=== PATIENT | female | born 1965 | race American Indian/Alaskan Native ===

== ENCOUNTER 2018-04-20 18:29 | Emergency (ER) | payer BC, OTHER ==
[2018-04-20] MEDS ORDERED: TYLENOL PO ONE (20:17)
--- NOTE | 2018-04-20 20:18 | Emergency Department Report ---
Blank Doc - Documentation Documentation: This is a 53 y.o. female that presents with diarrhea that started today. Repo rts myalgia, nausea, and upper abdominal pain. This initial assessment diagnostic orders/clinical plan/treatment (s) is/Are subject change based on patient's health status, clinical progression and re- assessment by fellow clinical providers in the ED. Further treatment and work-up at subsequent clinical providers discretion. Patient/guardians urged not to elope from their condition may be serious if not clinically assessed and managed. Initial order include: Labs Given Tylenol ACC for further evaluation.
[2018-04-20] MEDS ORDERED: TYLENOL ONE (20:20)
[2018-04-20 20:45] LABS: Basophils % (Auto) 0.2 % (0.0-1.8); Eosinophils % (Auto) 0.1 % (0.0-4.3); Hematocrit 41.5 % (30.3-42.9); Hemoglobin 13.9 gm/dl (10.1-14.3); Lymphocytes # (Auto) 0.3 K/mm3 (1.2-5.4); Lymphocytes % (Auto) 4.2 % (13.4-35.0); Mean Corpuscular HGB Conc 33 % (30-34); Mean Corpuscular Volume 88 fl (79-97); Monocytes # (Auto) 0.5 K/mm3 (0.0-0.8); Monocytes % (Auto) 5.6 % (0.0-7.3); Platelet Count 172 K/mm3 (140-440); Red Blood Count 4.73 M/mm3 (3.65-5.03); Red Cell Distribution Width 13.7 % (13.2-15.2)
[2018-04-20 21:02] LABS: Alanine Aminotransferase 17 units/L (7-56); Albumin 3.8 g/dL (3.9-5); BUN/Creatinine Ratio 13; Blood Urea Nitrogen 9 mg/dL (7-17); Calcium 9.4 mg/dL (8.4-10.2); Hemolysis Index 56
[2018-04-20] MEDS ORDERED: NACL 0.9% 1000 ML 1,000 ML ONE (22:25)
[2018-04-20] MEDS ORDERED: NACL 0.9% 1000 ML 1,000 ML IV ONE (22:40)
--- NOTE | 2018-04-20 22:57 | Emergency Department Report ---
ED Abdominal Pain HPI - General Chief Complaint: Abdominal Pain Stated Complaint: DIARRHEA Time Seen by Provider: 04/20/18 20:15 Source: patient Mode of arrival: Ambulatory Limitations: No Limitations - History of Present Illness Initial Comments: This is a 53-year-old -[place] female who presents with upper abdominal pain that has been for a few days with diarrhea. Patient states diarrhea started around 6 AM this morning. She also complains of pain radiating from stomach to back. Patient reports pain is worse after eating. Past medical history of pancreatitis and GERD. Patient reports pain is a sharp achy sensation that is 9 out of 10 on pain scale. She denies fever, chest pain, shortness of breath, vomiting, frequency, urgency, or dysuria. MD Complaint: abdominal pain Onset/Timin -: days(s) Location: LUQ, RUQ Radiation: back Migration to: no migration Severity scale (0 -10): 7 Quality: aching, sharp Consistency: constant Improves With: nothing Worsens With: eating Associated Symptoms: nausea, diarrhea. denies: vomiting, fever, chills, constipation, dysuria, hematemesis, hematochezia, melena, hematuria, anorexia, syncope - Related Data Home Medications Medication Instructions Recorded Confirmed Last Taken Omeprazole [PriLOSEC] 20 mg PO 02/24/14 02/24/14 02/23/14 Previous Rx's Medication Instructions Recorded Last Taken Type traMADol [Ultram 50 MG tab] 50 mg PO Q6HR PRN #20 tablet 02/24/14 Unknown Rx HYDROcodone/APAP 5-325 [[place] 1 each PO Q6HR PRN #20 tablet 12/04/14 Unknown Rx 5/325] Loperamide [Imodium] 2 mg PO Q2HR PRN #20 capsule 12/04/14 Unknown Rx Ondansetron [Zofran Odt] 4 mg PO Q6HR PRN #20 tab.rapdis 12/04/14 Unknown Rx Cyclobenzaprine [Flexeril] 10 mg PO QHS PRN #10 tablet 12/31/17 Unknown Rx Ibuprofen [Motrin] 600 mg PO Q8H PRN #20 tablet 12/31/17 Unknown Rx Loperamide HCl [Imodium A-D] 2 mg PO DAILY PRN #14 tablet 04/21/18 Unknown Rx Allergies Allergy/AdvReac Type Severity Reaction Status Date / Time No Known Allergies Allergy Verified 12/03/14 20:28 ED Review of Systems ROS: Stated complaint: DIARRHEA Other details as noted in HPI Constitutional: denies: chills, fever Respiratory: denies: cough, shortness of breath, wheezing Cardiovascular: denies: chest pain, palpitations Gastrointestinal: abdominal pain, nausea, diarrhea. denies: vomiting Skin: denies: rash, lesions Neurological: denies: headache, weakness, paresthesias Psychiatric: denies: anxiety, depression ED Past Medical Hx - Past Medical History Hx Congestive Heart Failure: No Hx Diabetes: No Hx GERD: Yes (lactose intolerant) Hx Asthma: No Hx COPD: No Additional medical history: Uterine fibriod, anemia,pancreatitis - Surgical History Past Surgical History?: Yes Additional Surgical History: back, tubal ligation, UFE, Hysterectomy - Social History Smoking Status: Never Smoker Substance Use Type: None - Medications Home Medications: Home Medications Medication Instructions Recorded Confirmed Last Taken Type Omeprazole [PriLOSEC] 20 mg PO 02/24/14 02/24/14 02/23/14 History traMADol [Ultram 50 MG tab] 50 mg PO Q6HR PRN #20 tablet 02/24/14 Unknown Rx HYDROcodone/APAP 5-325 [Conroy 1 each PO Q6HR PRN #20 tablet 12/04/14 Unknown Rx 5/325] Loperamide [Imodium] 2 mg PO Q2HR PRN #20 capsule 12/04/14 Unknown Rx Ondansetron [Zofran Odt] 4 mg PO Q6HR PRN #20 tab.rapdis 12/04/14 Unknown Rx Cyclobenzaprine [Flexeril] 10 mg PO QHS PRN #10 tablet 12/31/17 Unknown Rx Ibuprofen [Motrin] 600 mg PO Q8H PRN #20 tablet 12/31/17 Unknown Rx Loperamide HCl [Imodium A-D] 2 mg PO DAILY PRN #14 tablet 04/21/18 Unknown Rx ED Physical Exam - General Limitations: No Limitations General appearance: alert, in no apparent distress, obese - Respiratory Respiratory exam: Present: normal lung sounds bilaterally. Absent: respiratory distress - Cardiovascular Cardiovascular Exam: Present: regular rate, normal rhythm. Absent: systolic murmur, diastolic murmur, rubs, gallop - GI/Abdominal GI/Abdominal exam: Present: soft, tenderness (right upper quadrant and left upper quadrant tenderness), guarding, normal bowel sounds. Absent: distended, rebound, rigid, organomegaly, mass, bruit, pulsatile mass, hernia - Back Exam Back exam: Absent: CVA tenderness (R), CVA tenderness (L) - Neurological Exam Neurological exam: Present: alert, oriented X3, normal gait - Psychiatric Psychiatric exam: Present: normal affect, normal mood - Skin Skin exam: Present: warm, dry, intact, normal color. Absent: rash ED Course Vital Signs 04/20/18 04/20/18 04/20/18 20:15 20:20 22:38 Temperature 100 F H 99.2 F Pulse Rate 94 H 90 Respiratory 20 18 18 Rate Blood Pressure 124/75 Blood Pressure 109/62 [Right] O2 Sat by Pulse 97 96 Oximetry ED Medical Decision Making - Lab Data Result diagrams: 04/20/18 20:32 04/20/18 20:32 Lab Results 04/20/18 04/20/18 04/20/18 Range/Units 20:32 20:32 23:54 WBC 8.3 (4.5-11.0) K/mm3 RBC 4.73 (3.65-5.03) M/mm3 Hgb 13.9 (10.1-14.3) gm/dl Hct 41.5 (30.3-42.9) % MCV 88 (79-97) fl MCH 29 (28-32) pg MCHC 33 (30-34) % RDW 13.7 (13.2-15.2) % Plt Count 172 (140-440) K/mm3 Lymph % (Auto) 4.2 L (13.4-35.0) % [place] % (Auto) 5.6 (0.0-7.3) % Eos % (Auto) 0.1 (0.0-4.3) % Baso % (Auto) 0.2 (0.0-1.8) % Lymph # 0.3 L (1.2-5.4) K/mm3 [place] # 0.5 (0.0-0.8) K/mm3 Eos # 0.0 (0.0-0.4) K/mm3 Baso # 0.0 (0.0-0.1) K/mm3 Seg Neutrophils % 89.9 H (40.0-70.0) % Seg Neutrophils # 7.4 (1.8-7.7) K/mm3 Sodium 139 (137-145) mmol/L Potassium 4.4 (3.6-5.0) mmol/L Chloride 103.4 (98-107) mmol/L Carbon Dioxide 25 (22-30) mmol/L Anion Gap 15 mmol/L BUN 9 (7-17) mg/dL Creatinine 0.7 (0.7-1.2) mg/dL Estimated GFR > 60 ml/min BUN/Creatinine Ratio 13 % Glucose 102 H (65-100) mg/dL Calcium 9.4 (8.4-10.2) mg/dL Total Bilirubin 0.40 (0.1-1.2) mg/dL AST 18 (5-40) units/L ALT 17 (7-56) units/L Alkaline Phosphatase 97 (35-129) units/L Total Protein 6.8 (6.3-8.2) g/dL Albumin 3.8 L (3.9-5) g/dL Albumin/Globulin Ratio 1.3 % Lipase 14 (13-60) units/L - Radiology Data Radiology results: report reviewed PROCEDURE: CT ABDOMEN PELVIS W CON TECHNIQUE: Computerized axial tomography of the abdomen and pelvis was performed after the IV injection of iodinated nonionic contrast. HISTORY: RUQ LUQ tenderness COMPARISONS: None . FINDINGS: Visualized lower thorax: No significant abnormality. Liver: The liver size is normal. There is a 3.5 cm area of hypoattenuation in the anterior lateral aspect of the right lobe of the liver. This has peripheral contrast enhancement and fills in during delayed studies. Findings are most consistent with hemangioma or vascular malformation in this region.. Spleen: Normal size and attenuation. Gallbladder and biliary system: Normal. Pancreas: Normal. Adrenals: Normal. Kidneys: Normal. GI tract: No obstruction. The cecum, appendix and colon are normal. Moderate articular change in the distal colon. No inflammatory process. . Lymph nodes and mesentery: Normal. Vasculature: Normal.. Bladder: Normal. Reproductive organs: There is a significant amount of air in the vagina. The ut erus is absent. No pelvic masses are noted.. Peritoneum: No free fluid. Musculoskeletal structures: No significant abnormality. Other: None . IMPRESSION: There is no evidence of intestinal or urinary tract obstruction. No ileus or enteritis. The appendix is normal. Moderate diverticulosis of the distal colon. Uterus is absent. There is a significant amount of air in the vagina. Suspected 3.5 cm hemangioma versus venous malformation in the lateral anterior aspect of the right lobe of the liver. . - Medical Decision Making This is a 53 y.o. female that presents with upper abdominal pain and diarrhea for one day. Patient is stable and was examined by me. Vitals stable. Obtained CMP, CBC, lipase, and CT of abdomen. All labs are unremarkable. IV site obt ained and given normal saline 1 L bolus. There is no evidence of intestinal or urinary tract obstruction. No ileus or enteritis. The appendix is normal. Moderate diverticulosis of the distal colon. Uterus is absent. There is a significant amount of air in the vagina. Suspected 3.5 cm hemangioma versus venous malformation in the lateral anterior aspect of the right lobe of the liver. Plan to start indium for gastritis. Discussed plan with patient and agreed to plan. No further questions noted by the patient. Patient given instructions on diverticulosis diet and care. Instructed to follow-up with her primary care provider at [facility]. Discharged home in stable condition. Follow up with PCP in 2-3 days. Critical care attestation.: If time is entered above; I have spent that time in minutes in the direct care of this critically ill patient, excluding procedure time. ED Disposition Clinical Impression: Gastroenteritis Diverticulosis Qualifiers: Diverticulosis site: diverticulosis of large intestine Diverticulosis bleeding: diverticulosis without bleeding Qualified Code(s): K57.30 - Diverticulosis of large intestine without perforation or abscess without bleeding Abdominal pain Qualifiers: Abdominal location: left upper quadrant Qualified Code(s): R10.12 - Left upper quadrant pain Diarrhea Qualifiers: Diarrhea type: functional diarrhea Qualified Code(s): K59.1 - Functional diarrhea Disposition: DC-01 TO HOME OR SELFCARE Is pt being admited?: No Does the pt Need Aspirin: No Condition: Stable Instructions: Abdominal Pain (ED), Gastroenteritis (ED), Diverticulosis (ED), Diverticulosis Diet (ED) Additional Instructions: Frequent hand washing is important to reduce spread. Prompt disinfection of contaminated surfaces with household chlorine bleach- based fat pressroom worker and washing of soiled clothing and bedding should be advised. If food or water is thought to be contaminated, it should be avoided. Increase fluid intake. Drinks high in sugars such as carbonated soft drinks, fruit juice, and highly sugared liquids should be avoided. Prescriptions: Loperamide HCl [Imodium A-D] 2 mg PO DAILY PRN #14 tablet PRN Reason: Diarrhea Referrals: [facility] [Provider Group] - 3-5 Days Forms: Accompanied Note, Work/School Release Form(ED) Time of Disposition: 01:24
--- NOTE | 2018-04-21 00:21 | Cat Scan Report ---
PROCEDURE: CT ABDOMEN PELVIS W CON TECHNIQUE: Computerized axial tomography of the abdomen and pelvis was performed after the IV inject ion of iodinated nonionic contrast. HISTORY: RUQ LUQ tenderness COMPARISONS: None . FINDINGS: Visualized lower thorax: No significant abnormality. Liver: The liver size is normal. There is a 3.5 cm area of hypoattenuation in the anterior lateral as pect of the right lobe of the liver. This has peripheral contrast enhancement and fills in during del ayed studies. Findings are most consistent with hemangioma or vascular malformation in this region.. Spleen: Normal size and attenuation. Gallbladder and biliary system: Normal. Pancreas: Normal. Adrenals: Normal. Kidneys: Normal. GI tract: No obstruction. The cecum, appendix and colon are normal. Moderate articular change in the distal colon. No inflammatory process. . Lymph nodes and mesentery: Normal. Vasculature: Normal.. Bladder: Normal. Reproductive organs: There is a significant amount of air in the vagina. The uterus is absent. No pel chinyere masses are noted.. Peritoneum: No free fluid. Musculoskeletal structures: No significant abnormality. Other: None . IMPRESSION: There is no evidence of intestinal or urinary tract obstruction. No ileus or enteritis. The appendix is normal. Moderate diverticulosis of the distal colon. Uterus is absent. There is a significant amount of air in the vagina. Suspected 3.5 cm hemangioma versus venous malformation in the lateral anterior aspect of the right lo be of the liver. . This document is electronically signed by Carol Ann Chris DO., April 21 2018 12:19:19 AM ET
[2018-04-21 01:57] LABS: Bilirubin,Urine NEG (Negative); Blood,Urine NEG (Negative); Color,Urine Yellow (Yellow); Mucus,Urine FEW /HPF; Protein,Urine <15 mg/dL mg/dL (Negative); WBC,Urine < 1.0 /HPF (0.0-6.0)
[2018-04-21 02:11] VITALS: BP 117/73
== END 2018-04-21 02:10 | disposition home or self-care (01) ==
LOC: ED 18:29
DX: K52.9 Noninfective gastroenteritis and colitis, unspecified (principal); K57.30 Diverticulosis of large intestine without perforation or abscess without bleeding; Z98.51 Tubal ligation status; Z90.710 Acquired absence of both cervix and uterus; Z86.2 Personal history of diseases of the blood and blood-forming organs and certain disorders involving the immune mechanism
CPT/HCPCS: 36415; 74177; 80053; 81001; 83690; 85025; 96360; 99284; J7030; Q9967